=== PATIENT | female | born 1990 | race Caucasian/White ===

== ENCOUNTER 2016-11-16 22:09 | Emergency (ER) | payer OTHER ==
[~2016-11-16] VITALS: Ht 170.2 cm; Wt 55.0 kg
[~2016-11-16 22:09] MED LIST changes: -ACYC200C66 PO; -CLIN150 PO; -CLIN1CAP6 PO; -DOXY1CAP74 PO; -METH4TAB6 PO; -VALA500T PO
[2016-11-16 22:11] VITALS: BP 123/73; PULSE 95; RESP 15; TEMP 98.9; O2SAT 99
[2016-11-16] MEDS ORDERED: DOXY1CAP74 PO (22:25)
[2016-11-16] MEDS ORDERED: METH4TAB6 PO (22:25)
[2016-11-16] MEDS ORDERED: ACYC200C66 PO (22:25)
--- NOTE | 2016-11-16 22:37 | PD ---
HPI Chief Complaint: Cold / Flu Symptoms Time Seen by Provider: 22:18 Travel History International Travel<30 days: No Contact w/Intl Traveler<30days: No Traveled to known affect area: No History of Present Illness HPI This is a 26-year-old female who presents to the emergency department with 3 days of fever to 101.8, myalgias, fatigue, sore throat and rhinorrhea. She also has been having some painful vaginal lesions. She has been seeing an infectious disease doctor who diagnosed her with genital herpes. She also had a falsely positive syphillis test. Pt. was seen at her primary care physician today in the setting of her symptoms. She also had a pelvic exam done. She was discharged on steroids, valcyclovir and doxycycline. She has been home she's developed some swelling in the right side of her neck under her jaw, tender and painful. She's been having some pain when she swallows and tox. Her mom was concerned that she might have mumps. PFSH Past Medical History ADD: Yes Diminished Hearing: No Reproductive: Yes Influenza Vaccination: Yes ?: Not LMP: currently Past Surgical History Oral Surgery: Yes (WISDOM TEETH ) Tonsillectomy: Yes (AND ADENOIDS) Other Surgery: Yes (BIOPSIES OF BILAT BREAST ) Social History Alcohol Use: No Tobacco Use: No Substance Use: No Allergies-Medications (Allergen,Severity, Reaction): Coded Allergies: Penicillin (Verified Allergy, Unknown, 11/16/16) Reported Meds & Prescriptions Reported Meds & Active Scripts Active Valacyclovir (Valacyclovir HCl) 1 Gm Tab 1,000 Mg PO BID 10 Days Reported Doxycycline 40 Mg Cap 100 Mg PO BID Acyclovir 200 Mg Cap 200 Mg PO DAILY Methylprednisolone 4 Mg Tab 4 Mg PO DAILY Xanax (Alprazolam) 0.25 Mg Tab 0.25 Mg PO HS PRN Ritalin IR (Methylphenidate HCl) 10 Mg Tab 10 Mg PO DAILY Review of Systems Except as stated in HPI: all other systems reviewed are Neg Physical Exam Narrative GENERAL: Well-nourished, well-developed patient. SKIN: Warm and dry. HEAD: Normocephalic. EYES: No scleral icterus. No injection or drainage. ENT: Mild posterior pharyngeal erythema with no exudates. Tender anterior cervical lymphadenopathy on the right. NECK: Supple, trachea midline. CARDIOVASCULAR: Regular rate and rhythm without murmurs. RESPIRATORY: Breath sounds equal bilaterally. No accessory muscle use. GASTROINTESTINAL: Abdomen soft, non-tender, nondistended. MUSCULOSKELETAL: No cyanosis, or edema. Data Data Last Documented VS Vital Signs Date Time Temp Pulse Resp B/P Pulse Ox O2 Delivery O2 Flow Rate FiO2 11/16/16 22:11 98.9 95 15 123/73 99 Room Air Orders Group A Rapid Strep Screen (11/16/16 22:32) Strep Culture (Group A) (11/16/16 22:34) MDM Medical Decision Making Medical Screen Exam Complete: Yes Emergency Medical Condition: Yes Differential Diagnosis Viral syndrome, influenza, strep pharyngitis, viral pharyngitis, cat scratch disease Narrative Course This is a 26-year-old female who presents to the emergency department with malaise, fatigue, sore throat and rhinorrhea with some neck swelling that started today. She has tender anterior cervical lymphadenopathy on the right side. She is afebrile here in the emergency department. Her primary care physician started her on doxycycline earlier today. I'm not certain of the indication, however given on not clear what the reason as I don't want to discontinue it. Cat scratch disease is on the differential but I think doxycycline is a reasonable treatment. We obtained a strep test in the emergency department. She is nontoxic appearing. I think she can be discharged home and I think she can continue the treatments prescribed by her primary care physician. Diagnosis Primary Impression: Acute viral pharyngitis Patient Instructions: General Instructions Additional Instructions: If you develop severe chest pain, shortness of breath, sweating, lightheadedness , dizziness or difficulty breathing return to the emergency department immediately. Followup with your primary care physician in 2-3 days if your symptoms are not resolved. Med/Other Pt SpecificInfo: No Change to Meds Disposition: 01 DISCHARGE HOME Condition: Stable Irene Zavala MD Nov 16, 2016 22:37
== END 2016-11-16 23:33 | disposition home or self-care (01) ==
LOC: NEPC 22:09
DX: J02.8 Acute pharyngitis due to other specified organisms (principal)
CPT/HCPCS: 87081; 87880; 99283

== ENCOUNTER → 2016-11-16 | Outpatient (CLI) | payer OTHER ==
[~2016-11-16] MED LIST: ACYC200C66 PO; ALPR.25 PO; CLIN150 PO; CLIN1CAP6 PO; DOXY1CAP74 PO; METH4TAB6 PO; METHY10 PO; VALA1TAB PO; VALA500T PO
[2016-11-16 12:07] LABS: BACTERIA, URINE RARE /hpf; BLOOD, URINE MOD (NEG); GLUCOSE,URINE NEG (NEG); KETONE, URINE NEG (NEG); MUCUS URINE MANY /lpf (OCC); NITRITE,URINE NEG (NEG); PH, URINE 5.5 (5.0-8.5); SQUAMOUS EPITHELIAL CELL URINE 1 /hpf (0-5); TRANSITIONAL EPI CELLS, URINE 1 /hpf; URINE COLOR YELLOW (YELLW/STRAW)
[2016-11-19 10:51] LABS: HSV IGM 1 TITER ND TITER; HSV IGM II TITER ND TITER
[2016-11-19 15:47] LABS: RAPID PLASMA REAGIN SCREEN REACTIVE (NON-REACTVE)
[2016-11-19 17:52] LABS: HSV2 IGM IFA NEGATIVE (())
[2016-11-20 23:56] LABS: TREPONEMA PALLIDUM TOTAL ABS NON-REACTIVE (())
== END ==
LOC: CLAB 10:32
PROVIDERS: ATTEND Specialist
DX: N77.1 Vaginitis, vulvitis and vulvovaginitis in diseases classified elsewhere (principal); B96.89 Other specified bacterial agents as the cause of diseases classified elsewhere
CPT/HCPCS: 36415; 81001; 86592; 86593; 86695; 86696; 86780; 86787; 87086

== ENCOUNTER 2016-11-19 04:34 | Inpatient (IN) | payer OTHER ==
[~2016-11-19] VITALS: Ht 170.2 cm; Wt 56.9 kg
[2016-11-19] VITALS (8 sets, daily range): BP systolic 88–119; BP diastolic 55–73; PULSE 62–114; RESP 15–16; TEMP 96.1–100.3; O2SAT 97–98
[~2016-11-19 04:34] MED LIST changes: +ACYC200C66 PO; +DOXY1CAP74 PO; +METH4TAB6 PO
[2016-11-19] MEDS ORDERED: CLIN1CAP6 PO (04:54)
[2016-11-19] MEDS ORDERED: VALA500T PO (04:54)
--- NOTE | 2016-11-19 05:31 | PD ---
HPI Chief Complaint: ENT Complaint Time Seen by Provider: 05:01 Travel History International Travel<30 days: No Contact w/Intl Traveler<30days: No Traveled to known affect area: No History of Present Illness HPI 26-year-old female complains of sore throat, pain swelling under the jaw, coughing congestion and fever. Patient started having flulike symptoms with coughing congestion low-grade fever body ache 5 days ago. Patient was seen by personal physician 3 days ago and again 2 days ago and was given prescription for doxycycline. Patient started having pain swelling on the both sides under the jaw 2 days ago. Patient states that the pain and swelling on the right side got better however she has increasing pain and swelling of the left side under the jaw. Patient was seen by personal physician yesterday and was advised to stop taking doxycycline and given prescription for clindamycin 300 mg 3 times a day. Patient states that she still had persistent pain and swelling left-sided jaw despite taking the medication. Patient complains of dysphagia and persistent sore throat. Patient denies any chest pain or shortness of breath. Patient denies abdominal pain. Patient denies any nausea vomiting diarrhea. PFSH Past Medical History ADD: Yes Diminished Hearing: No Reproductive: Yes Immunizations Current: Yes ?: Not Past Surgical History Oral Surgery: Yes (WISDOM TEETH ) Tonsillectomy: Yes (AND ADENOIDS) Other Surgery: Yes (BIOPSIES OF BILAT BREAST ) Social History Alcohol Use: No Tobacco Use: No Substance Use: No Allergies-Medications (Allergen,Severity, Reaction): Coded Allergies: Penicillin (Verified Allergy, Unknown, 11/19/16) Reported Meds & Prescriptions Reported Meds & Active Scripts Active Reported Valacyclovir (Valacyclovir HCl) 500 Mg Tab 500 Mg PO BID Clindamycin (Clindamycin HCl) 300 Mg Cap 300 Mg PO BID Acyclovir 200 Mg Cap 200 Mg PO DAILY Methylprednisolone 4 Mg Tab 4 Mg PO DAILY Xanax (Alprazolam) 0.25 Mg Tab 0.25 Mg PO HS PRN Ritalin IR (Methylphenidate HCl) 10 Mg Tab 10 Mg PO DAILY Review of Systems General / Constitutional: No: Fever Eyes: No: Visual changes HENT: Positive: Sore Throat, No: Headaches Cardiovascular: No: Chest Pain or Discomfort Respiratory: No: Shortness of Breath Gastrointestinal: No: Abdominal Pain Genitourinary: No: Dysuria Musculoskeletal: No: Pain Skin: No Rash Neurologic: No: Weakness Psychiatric: No: Depression Endocrine: No: Polydipsia Hematologic/Lymphatic: No: Easy Bruising Physical Exam Narrative GENERAL: Well-nourished, well-developed patient. SKIN: Warm and dry. HEAD: Normocephalic. EYES: No scleral icterus. No injection or drainage. TM: Clear. Throat: Mild erythematous. No exudate no edema. NECK: Supple, trachea midline. No JVD or lymphadenopathy. Patient has soft tissue swelling tenderness left side submandibular area. No induration. CARDIOVASCULAR: Regular rate and rhythm without murmurs, gallops, or rubs. RESPIRATORY: Breath sounds equal bilaterally. No accessory muscle use. GASTROINTESTINAL: Abdomen soft, non-tender, nondistended. MUSCULOSKELETAL: No cyanosis, or edema. BACK: Nontender without obvious deformity. No CVA tenderness. Data Data Last Documented VS Vital Signs Date Time Temp Pulse Resp B/P Pulse Ox O2 Delivery O2 Flow Rate FiO2 11/19/16 04:35 100.3 114 16 110/73 98 Orders Complete Blood Count With Diff (11/19/16 05:19) Basic Metabolic Panel (Bmp) (11/19/16 05:19) Monoscreen (11/19/16 05:19) Iv Access Insert/Monitor (11/19/16 05:19) Ct Soft Tiss Neck W Iv Cont (11/19/16 05:19) Iohexol 300 Inj (Omnipaque 300 Inj) (11/19/16 05:47) Labs Laboratory Tests Test 11/19/16 05:36 White Blood Count 8.5 TH/MM3 Red Blood Count 4.55 MIL/MM3 Hemoglobin 14.2 GM/DL Hematocrit 41.1 % Mean Corpuscular Volume 90.3 FL Mean Corpuscular Hemoglobin 31.1 PG Mean Corpuscular Hemoglobin 34.4 % Concent Red Cell Distribution Width 13.1 % Platelet Count 298 TH/MM3 Mean Platelet Volume 8.3 FL Neutrophils (%) (Auto) 85.1 % Lymphocytes (%) (Auto) 9.2 % Monocytes (%) (Auto) 5.3 % Eosinophils (%) (Auto) 0.0 % Basophils (%) (Auto) 0.4 % Neutrophils # (Auto) 7.2 TH/MM3 Lymphocytes # (Auto) 0.8 TH/MM3 Monocytes # (Auto) 0.4 TH/MM3 Eosinophils # (Auto) 0.0 TH/MM3 Basophils # (Auto) 0.0 TH/MM3 CBC Comment DIFF FINAL Differential Comment Sodium Level 138 MEQ/L Potassium Level 4.5 MEQ/L Chloride Level 104 MEQ/L Carbon Dioxide Level 28.0 MEQ/L Anion Gap 6 MEQ/L Blood Urea Nitrogen 9 MG/DL Creatinine 0.74 MG/DL Estimat Glomerular Filtration 93 ML/MIN Rate Random Glucose 104 MG/DL Calcium Level 9.1 MG/DL Monoscreen NEG MDM Medical Decision Making Medical Screen Exam Complete: Yes Emergency Medical Condition: Yes Interpretation(s) 5:55 AM. CBC within normal limit. BMP within normal limit. Differential Diagnosis Differential diagnosis including parotitis, sialadenitis, abscess, lymphadenitis. Narrative Course 26-year-old female with pain swelling left submandibular area. Patient also has sore throat. Patient has persistent dry cough. Diagnosis Primary Impression: Parapharyngeal abscess Additional Impression: Sialadenitis Admitting Information Admitting Physician Requests: Admit Patient Instructions: General Instructions Additional Instructions: Take medications as directed. Follow-up with ENT. Return if worse. Med/Other Pt SpecificInfo: Prescription(s) given Disposition: DISCHARGE HOME Condition: Stable Flavio Khan MD Nov 19, 2016 05:30
[2016-11-19 05:42] LABS: AUTOMATED NEUTROPHIL # 7.2 TH/MM3 (1.8-7.7); BASOPHIL % 0.4 % (0.0-2.0); HEMATOCRIT 41.1 % (35.0-46.0); HEMO FLAGS DIFF FINAL; LYMPH % 9.2 % (9.0-44.0); LYMPHOCYTE # 0.8 TH/MM3 (1.0-4.8); MEAN CELL VOLUME 90.3 FL (80.0-100.0); MEAN CORPUSCULAR HEMOGLOBIN 31.1 PG (27.0-34.0); MEAN CORPUSCULAR HGB CONC 34.4 % (32.0-36.0); MONO % 5.3 % (0.0-8.0); NEUT % 85.1 % (16.0-70.0); PLATELET COUNT 298 TH/MM3 (150-450); RED BLOOD COUNT 4.55 MIL/MM3 (4.00-5.30); RED CELL DISTRIBUTION WIDTH 13.1 % (11.6-17.2); WHITE BLOOD COUNT 8.5 TH/MM3 (4.0-11.0)
[2016-11-19] MEDS ORDERED: IOHEXOL 300 MG/ML 50 ML BTL (for RAD DIAG) IV ONE (05:47)
[2016-11-19 05:54] LABS: POTASSIUM 4.5 MEQ/L (3.5-5.1)
--- NOTE | 2016-11-19 06:33 | RADRPT ---
EXAM DATE/TIME: 11/19/2016 05:39 [facility] COMPARISON: No previous studies available for comparison. INDICATIONS : Complains of swollen salivary glands. IV CONTRAST: 46 cc Omnipaque 300 (iohexol) IV RADIATION DOSE: 18.72 CTDIvol (mGy) MEDICAL HISTORY : None SURGICAL HISTORY : Tonsillectomy. ENCOUNTER: Initial ACUITY: 1 day PAIN SCALE: 4/10 LOCATION: facial TECHNIQUE: Volumetric scanning of the neck was performed. Using automated exposure control and adjustment of th e mA and/or kV according to patient size, radiation dose was kept as low as reasonably achievable to obtain optimal diagnostic quality images. FINDINGS: There is submucosal left parapharyngeal elongated fluid collection at the level of the lingual tonsil and extending inferior to the vallecula and piriform sinus region. In general, the fluid is proximal ly 7 x 11 mm in greatest transaxial dimension. There is swelling and edema in the left submandibular gland, measures approximately 22 x 39 mm relative to the left 17 x 26 mm. I don't see a duct stone or abscess of the submandibular gland. No lymphadenopathy demonstrated. There is mucoperiosteal thickening of the visualized maxillary air cells, left worse than right. Visualized lung apices are clear. CONCLUSION: 1. Elongated left parapharyngeal abscess at the level of the hypopharynx as above. 2. Swelling and edema of the left submandibular gland without abscess. 3. Chronic appearing left maxillary sinusitis. Freddy Cabrera MD on November 19, 2016 at 6:23 Board Certified Radiologist. This report was verified electronically.
[2016-11-19] MEDS ORDERED: CLINDAMYCIN INJ 600 MG in SODIUM CHLORIDE 0.9% INJ 100 ML IV ONE (07:00)
[2016-11-19] MEDS ORDERED: SODIUM CHLORIDE 0.9% FLUSH 5 ML FLUSH IVF PRN (07:00)
[2016-11-19] MEDS ORDERED: ACETAMINOPHEN 325 MG TAB PO PRN ×2 (08:00→10:00)
[2016-11-19] MEDS ORDERED: ONDANSETRON HCL 4 MG/2 ML VIAL IV PRN (08:00)
[2016-11-19] MEDS ORDERED: CLINDAMYCIN INJ 600 MG in SODIUM CHLORIDE 0.9% INJ 100 ML IV SCH (08:00)
--- NOTE | 2016-11-19 08:32 | HHI.HP ---
HPI Service [facility] Primary Care Physician Shelby Jaime Admission Diagnosis parapharyngeal abscess. Sialadenitis Diagnoses: Chief Complaint: neck swelling, body aches, fever Travel History International Travel<30 Days: No Contact w/Intl Traveler <30 Da: No Traveled to Known Affected Are: No History of Present Illness This is 26-year-old female who is generally in good health, presented to ED with complains of sore throat, pain swelling under the jaw, coughing, congestion and fever x 4 days. Patient started having flulike symptoms with coughing congestion low-grade fever body ache 5 days ago. Patient was seen by personal physician 3 days ago and again 2 days ago and was given prescription for doxycycline. Patient started having pain swelling on the both sides under the jaw 2 days ago. Patient states that the pain and swelling on the right side got better however she has increasing pain and swelling of the left side under the jaw. Patient was seen by personal physician yesterday and was advised to stop taking doxycycline and given prescription for clindamycin 300 mg 3 times a day. She was also given a Medrol dose pack. She was told that it was possible sialedinitis and told to eat Sour patch candy, which did improve swelling on left neck. Patient states that she still had persistent pain and swelling left-sided jaw despite taking the medication. Patient complained of dysphagia and persistent sore throat. Patient denied any chest pain or shortness of breath, no abdominal pain, no nausea vomiting or diarrhea. She is also having painful vaginal lesions that appeared a couple of weeks ago, she had work up done and was found positive for syphillis. She went to see Dr. Lopez who ran more tests and was negative for syphillis. She was negative for genital herpes as well. She has been on Acyclovir and is due to see her [employer]. States that the vaginal lesions did improve but are still present, not as painful, no drainage. In the ED, she was evaluated, laboratory work up done, essentially unremarkable. Strep was negative. She was febrile 100.[address] of neck was done showing pharyngeal abscess on left. Last Impressions Neck CT 11/19/16 0519 Signed Impressions: Service Date/Time: Saturday, November 19, 2016 05:39 - CONCLUSION: 1. Elongated left parapharyngeal abscess at the level of the hypopharynx as above. 2. Swelling and edema of the left submandibular gland without abscess. 3. Chronic appearing left maxillary sinusitis. Freddy Cabrera MD She has been continued on antibiotics. States she is swallowing better, still has body aches. Pt. admitted for further evaluation and treatment. Review of Systems Constitutional: COMPLAINS OF: Fever, Chills, DENIES: Diaphoretic episodes, Fatigue, Weight gain, Weight loss, Dizziness, Change in appetite, Night Sweats Endocrine: DENIES: Abnorml menstrual pattern, Heat/cold intolerance, Polydipsia , Polyuria, Polyphagia Eyes: DENIES: Blurred vision, Diplopia, Eye inflammation, Eye pain, Vision loss , Photosensitivity, Double Vision Ears, nose, mouth, throat: DENIES: Tinnitus, Hearing loss, Vertigo, Nasal discharge, Oral lesions, Throat pain, Hoarseness, Ear Pain, Running Nose, Epistaxis, Sinus Pain, Toothache, Odynophagia Respiratory: COMPLAINS OF: Cough, DENIES: Apneas, Snoring, Wheezing, Hemoptysis, Sputum production, Shortness of breath Cardiovascular: DENIES: Chest pain, Palpitations, Syncope, Dyspnea on Exertion , PND, Lower Extremity Edema, Orthopnea, Claudication Gastrointestinal: DENIES: Abdominal pain, Black stools, Bloody stools, Constipation, Diarrhea, Nausea, Vomiting, Difficulty Swallowing, Anorexia Genitourinary: DENIES: Abnormal vaginal bleeding, Dysmenorrhea, Dyspareunia, Sexual dysfunction, Urinary frequency, Urinary incontinence, Urgency, Hematuria , Dysuria, Nocturia, Vaginal discharge Musculoskeletal: DENIES: Joint pain, Muscle aches, Stiffness, Joint Swelling, Back pain, Neck pain Integumentary: DENIES: Abnormal pigmentation, Pruritus, Rash, Nail changes, Breast masses, Breast skin changes, Nipple discharge Hematologic/lymphatic: DENIES: Bruising, Lymphadenopathy Immunologic/allergic: DENIES: Eczema, Urticaria Neurologic: DENIES: Abnormal gait, Headache, Localized weakness, Paresthesias, Seizures, Speech Problems, Tremor, Poor Balance Psychiatric: DENIES: Anxiety, Confusion, Mood changes, Depression, Hallucinations, Agitation, Suicidal Ideation, Homicidal Ideation, Delusions Other vaginal lesions Past Family Social History Past Medical History Anxiety ADD Has menses Past Surgical History Harmony teeth surgery Biopsies of bilateral breast that was negative Tonsillectomy and adenoidectomy Reported Medications Reported Meds & Active Scripts Active Reported Valacyclovir (Valacyclovir HCl) 500 Mg Tab 500 Mg PO BID Clindamycin (Clindamycin HCl) 300 Mg Cap 300 Mg PO BID Acyclovir 200 Mg Cap 200 Mg PO DAILY Methylprednisolone 4 Mg Tab 4 Mg PO DAILY Xanax (Alprazolam) 0.25 Mg Tab 0.25 Mg PO HS PRN Ritalin IR (Methylphenidate HCl) 10 Mg Tab 10 Mg PO DAILY Allergies: Coded Allergies: Penicillin (Verified Allergy, Unknown, 11/19/16) Active Ordered Medications Inpatient Medications Acetaminophen (Tylenol) 650 mg Q4H PRN PO Temp>101F, Headache; Start 11/19/16 at 08:00 Clindamycin Phosphate/Sodium Chloride (Cleocin Inj/NS Inj) 104 ml @ 208 mls/hr Q8H IV ; Start 11/19/16 at 08:00 IV Flush (NS Flush) 2 ml BID IVF ; Start 11/19/16 at 09:00 IV Flush 2 ml 2 ml UNSCH PRN IVF FLUSH AFTER USING IV ACCESS; Start 11/19/16 at 07:00 Ondansetron HCl (Zofran Inj) 4 mg Q6H PRN IV NAUSEA OR VOMITING; Start at 08:00 Family History Mother is alive and well, history of chronic bronchitis secondary to smoking Father is alive, doesn't know much about his health history Has multiple siblings, doesn't know much about their health Social 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 No smoking, social alcohol use, no substance abuse. Physical Exam Vital Signs Vital Signs Date Time Temp Pulse Resp B/P Pulse Ox O2 Delivery O2 Flow Rate FiO2 11/19/16 04:35 100.3 114 16 110/73 98 Physical Exam GENERAL: This is a well-nourished, well-developed patient, in no apparent distress. SKIN: No rashes, ecchymoses or lesions. Cool and dry. HEAD: Atraumatic. Normocephalic. No temporal or scalp tenderness. EYES: Pupils equal round and reactive. Extraocular motions intact. No scleral icterus. No injection or drainage. ENT: Nose without bleeding, purulent drainage or septal hematoma. Throat without erythema, tonsillar hypertrophy or exudate. Uvula midline. Airway patent. NECK: Trachea midline. No JVD or lymphadenopathy. Neck supple. Patient has soft tissue swelling tenderness left side submandibular area. CARDIOVASCULAR: Regular rate and rhythm without murmurs, gallops, or rubs. RESPIRATORY: Clear to auscultation. Breath sounds equal bilaterally. No wheezes , rales, or rhonchi. GASTROINTESTINAL: Abdomen soft, non-tender, nondistended. No hepato-splenomegaly , or palpable masses. No guarding. MUSCULOSKELETAL: Extremities without clubbing, cyanosis, or edema. No joint tenderness, effusion, or edema noted. No calf tenderness. Negative Homans sign bilaterally. NEUROLOGICAL: Awake and alert. Cranial nerves II through XII intact. Motor and sensory grossly within normal limits. Five out of 5 muscle strength in all muscle groups. Normal speech. Laboratory Laboratory Tests Test 11/19/16 05:36 White Blood Count 8.5 Red Blood Count 4.55 Hemoglobin 14.2 Hematocrit 41.1 Mean Corpuscular Volume 90.3 Mean Corpuscular Hemoglobin 31.1 Mean Corpuscular Hemoglobin 34.4 Concent Red Cell Distribution Width 13.1 Platelet Count 298 Mean Platelet Volume 8.3 Neutrophils (%) (Auto) 85.1 Lymphocytes (%) (Auto) 9.2 Monocytes (%) (Auto) 5.3 Eosinophils (%) (Auto) 0.0 Basophils (%) (Auto) 0.4 Neutrophils # (Auto) 7.2 Lymphocytes # (Auto) 0.8 Monocytes # (Auto) 0.4 Eosinophils # (Auto) 0.0 Basophils # (Auto) 0.0 CBC Comment DIFF FINAL Differential Comment Sodium Level 138 Potassium Level 4.5 Chloride Level 104 Carbon Dioxide Level 28.0 Anion Gap 6 Blood Urea Nitrogen 9 Creatinine 0.74 Estimat Glomerular Filtration 93 Rate Random Glucose 104 Calcium Level 9.1 Monoscreen NEG Result Diagram: 11/19/1636 11/19/1636 Imaging Last Impressions Neck CT 11/19/16518 Signed Impressions: Service Date/Time: Saturday, November 19, 2016 05:39 - CONCLUSION: 1. Elongated left parapharyngeal abscess at the level of the hypopharynx as above. 2. Swelling and edema of the left submandibular gland without abscess. 3. Chronic appearing left maxillary sinusitis. Freddy Cabrera MD Assessment and Plan Problem List: (1) Parapharyngeal abscess (2) Genital lesion, female Assessment and Plan Admit to Dr. Hong 26-year-old female presented with neck swelling, generalized malaise, body aches , fever, difficulty swallowing. CT of the neck completed with findings of elevated left parapharyngeal abscess at the level of the hypopharynx, swelling and edema of the left submandibular gland without abscess. -Continue with empiric antibiotics -Follow cultures -ENT consultation -Continue with steroids Genital lesions, recent workup, negative for herpes, negative for syphilis -Continue with acyclovir for now Follow-up with gynecology as outpatient Home medications reviewed, initiated as indicated SCDs for DVT prophylaxis PPI for GI prophylaxis Plan of care has been discussed with the patient, attending and registered nurse. Further management of the patient be dependent on the hospital This patient was seen by myself and Dr. Hong, this H&P is written his behalf Taisha Cloud Nov 19, 2016 08:32
[2016-11-19] MEDS ORDERED: SODIUM CHLORIDE 0.9% FLUSH 5 ML FLUSH IVF SCH (09:00)
[2016-11-19] MEDS ORDERED: ALPRAZolam 0.25 MG TAB PO PRN ×2 (09:45→10:00)
[2016-11-19] MEDS ORDERED: ONDANSETRON HCL 4 MG/2 ML VIAL IVP PRN (10:00)
[2016-11-19] MEDS ORDERED: NALOXONE HCL 0.4 MG/ML AMP IV PRN (10:00)
[2016-11-19] MEDS ORDERED: SODIUM CHLORIDE 0.9% FLUSH 5 ML FLUSH FLUSH PRN (10:00)
[2016-11-19] MEDS: HEPARIN SODIUM - SQ 10,000 UNITS/ML VIAL SQ SCH ×2 (11:59→20:47)
[2016-11-19] MEDS: SODIUM CHLOR 0.9% 1000 ML INJ 1,000 ML IV SCH ×2 (11:59→21:57)
[2016-11-19] MEDS: valACYclovir HCL 500 MG TAB PO SCH ×2 (11:59→20:45)
[2016-11-19] MEDS: DEXAMETHASONE SOD PHOS 20 MG/5 ML VIAL IV SCH ×2 (14:30→21:47)
[2016-11-19] MEDS: ACETAMINOPHEN/CODEINE 300 MG/30 MG TAB PO PRN ×2 (14:33→21:55)
[2016-11-19] MEDS: CLINDAMYCIN INJ 600 MG in SODIUM CHLORIDE 0.9% INJ 100 ML IV SCH (16:25)
[2016-11-19] MEDS ORDERED: CLINDAMYCIN INJ 900 MG in SODIUM CHLORIDE 0.9% INJ 100 ML IV SCH (17:00)
[2016-11-19] MEDS: SODIUM CHLORIDE 0.9% FLUSH 5 ML FLUSH FLUSH SCH (20:45)
[2016-11-19] MEDS ORDERED: CLINDAMYCIN 150 MG CAP PO SCH (21:00)
[2016-11-19] MEDS ORDERED: valACYclovir HCL 500 MG TAB PO SCH (21:00)
[2016-11-20] VITALS (7 sets, daily range): BP systolic 92–108; BP diastolic 50–71; PULSE 51–76; RESP 14–18; TEMP 96.1–97.9; O2SAT 96–99
[2016-11-20] MEDS: CLINDAMYCIN INJ 600 MG in SODIUM CHLORIDE 0.9% INJ 100 ML IV SCH ×2 (00:10→08:28)
[2016-11-20] MEDS: ACETAMINOPHEN/CODEINE 300 MG/30 MG TAB PO PRN ×2 (03:32→14:36)
[2016-11-20] MEDS: DEXAMETHASONE SOD PHOS 20 MG/5 ML VIAL IV SCH ×3 (05:17→20:51)
[2016-11-20 06:27] LABS: AUTOMATED NEUTROPHIL # 5.1 TH/MM3 (1.8-7.7); BASOPHIL % 0.2 % (0.0-2.0); HEMATOCRIT 38.2 % (35.0-46.0); HEMO FLAGS DIFF FINAL; LYMPH % 16.4 % (9.0-44.0); MEAN CELL VOLUME 90.7 FL (80.0-100.0); MEAN CORPUSCULAR HEMOGLOBIN 30.6 PG (27.0-34.0); MEAN CORPUSCULAR HGB CONC 33.8 % (32.0-36.0); MONO % 3.3 % (0.0-8.0); NEUT % 80.1 % (16.0-70.0); PLATELET COUNT 308 TH/MM3 (150-450); RED BLOOD COUNT 4.21 MIL/MM3 (4.00-5.30); WHITE BLOOD COUNT 6.3 TH/MM3 (4.0-11.0)
[2016-11-20 06:46] LABS: BICARBONATE 26.1 MEQ/L (21.0-32.0); POTASSIUM 3.9 MEQ/L (3.5-5.1)
[2016-11-20] MEDS: HEPARIN SODIUM - SQ 10,000 UNITS/ML VIAL SQ SCH (07:23)
[2016-11-20] MEDS: SODIUM CHLOR 0.9% 1000 ML INJ 1,000 ML IV SCH (08:23)
[2016-11-20] MEDS: ACYCLOVIR 200 MG CAP PO SCH (08:29)
[2016-11-20] MEDS: SODIUM CHLORIDE 0.9% FLUSH 5 ML FLUSH FLUSH SCH (08:29)
[2016-11-20] MEDS ORDERED: methylPREDNISolone 4 MG TAB PO SCH (09:00)
[2016-11-20] MEDS ORDERED: METHYLPHENIDATE HCL 10 MG TAB PO SCH (09:00)
--- NOTE | 2016-11-20 12:56 | MB ---
cc: ESPERANZA HENSLEY MD DATE OF CONSULTATION 11/20/[address] Salcedo REASON FOR CONSULTATION Abscess HISTORY OF PRESENT ILLNESS This is 26-year-old white female who presented to the emergency department because of fever, body aches and swelling of the neck. The patient was initially evaluated in the emergency department on November 16 and at that time she presented with flu-like symptoms, as well as fever with a temperature of 101.8 degrees, myalgias, sore throat and fatigue. She also reports having painful vaginal lesions as well. The patient at preliminary workup for the vaginal lesions and syphilis test was positive, but this was felt to be falsely positive. She also had herpes testing which showed negative for herpes 1 and 2. VZV titer was elevated. The patient was treated with steroids, valacyclovir, and doxycycline. She stated that approximately a few days after that she started developing mild tenderness at the right submandibular area and subsequently she developed swelling underneath both sides of the jaw and she had some soreness of the throat and it became difficult to swallow. She describes some pain on swallowing. This saw her primary physician and she was told to suck on some kiddies sour candy. She has had some relief, but the swelling remained on the left side and it became more tender and painful. She describes the pain being 8/10 scale and she had low grade fever as well and therefore she presented again to the emergency department for evaluation. She underwent workup including CT scan of the neck which revealed an elongated left parapharyngeal abscess at the level of the hypopharynx and also edema and swelling of the left submandibular gland and chronic-appearing left maxillary sinusitis. Her temperature was 100.3 when she presented. Her white blood cell count was normal. She had no drooling problem and no problems controlling her saliva. She was able to eat, but it was difficult because of pain. [place] screen test was negative. Throat culture revealed no group A beta strep. Currently the patient feels better. She has less pain and she describes mostly discomfort in the left submandibular region. The patient describes two episodes with vaginal lesion which would occur right before her period. She notes that this would go away after the period was over. She notes that she has not noticed any at this current time. The patient states that her eyes have been somewhat dry, but she has had no severe dryness to the point she could not function. She also notes that she gets some pain in her wrist when she exercises, but has no problems with significant arthritic pains. The patient has had her tonsils and adenoids removed at age 6. Prior HIV testing has been negative. PAST MEDICAL HISTORY 1. Anxiety disorder 2. ADD 3. Tonsillectomy and adenoidectomy 4. Breast biopsy 5. [place] teeth surgery ALLERGIES PENICILLIN MEDICATIONS 1. Clindamycin 2. Acyclovir 3. Ritalin 4. Decadron 5. Tylenol with Codeine #3 p.r.n. SOCIAL HISTORY No tobacco, alcohol or illicit drugs. The patient has been sexually active in the past. REVIEW OF SYSTEMS Pertinent as mentioned above. No back pain, dysuria or headaches. The patient describes foul-taste in her mouth. No problems with control of her saliva. PHYSICAL EXAMINATION This is a well-developed slender female in no acute distress. She is awake and alert and oriented. VITAL SIGNS: Include temperature 97.1, BP 101/56, respirations 16, heart rate 76. HEENT: Head is atraumatic. Extraocular movements grossly intact, pupils reactive to light. No icterus. Oropharynx, no visible lesions. Oropharynx is clear. Moist mucosa. Uvula is midline. Nose no drainage. NECK: Supple. Swelling at the right submandibular gland which is nontender. This is about the size of an almond nut. On the left submandibular region, there is more swelling at the submandibular which is tender on palpation. This measures around the size of a large grape. It is mobile. There is no visible erythema. The neck is supple. LUNGS: Clear to auscultation. HEART: Regular rate and rhythm without murmurs or rubs or gallops. ABDOMEN: Bowel sounds present, soft, nontender. RECTAL: Not performed. EXTREMITIES: No clubbing, cyanosis or edema. No tenderness on palpation at the joints. No calf tenderness. SKIN: No rash. NEUROLOGIC: Nonfocal. PSYCHIATRIC: The patient calm and cooperative and pleasant. LABORATORY DATA WBC 6.3, platelet count 308, hemoglobin 12.9, 80% neutrophils. Creatinine 0.55, BUN 7, sodium 140. IMPRESSION 1. Parapharyngeal abscess and sialoadenitis. 2. Genital lesions which have been worked up and was negative for herpes and syphilis and is of unclear etiology. This is likely unrelated to her problems with the parapharyngeal abscess. I think the Parapharnygeal abscess is unrelated to the vaginal lesions. RECOMMENDATIONS 1. Continue to treat the patient with clindamycin. She appears clinically improved and she can be continued on the clindamycin p.o. because she has a penicillin allergy. I would give 300 mg p.o. four times a day for another seven to ten days. 2. She should follow up with Dr. Lopez as an outpatient. 3. She should also see a cath lab radiology technician when she has the lesions of the vagina so that testing of tissue scraping can be done to try to get a diagnosis. She tells me that she has an appointment with a CHECK WRITING MACHINE OPERATOR physician scheduled. 4. She is supposed to try solid foods today and I recommended that if she tolerates the solid food, switching the antibiotics to p.o. can be done. Thank you for this consultation. This patient's progress will be monitored if she remains in the hospital. Esperanza Hensley MD FD/SEMAJ /11:56 AM /12:36 PM MARCIN
[2016-11-20] MEDS: CLINDAMYCIN 150 MG CAP PO SCH ×2 (15:11→20:51)
--- NOTE | 2016-11-20 16:05 | MB ---
cc: NEHEMIAS SALCEDO MD DATE OF CONSULTATION 11/20/2016 REASON FOR CONSULTATION Parapharyngeal abscess. HISTORY OF THE PRESENT ILLNESS The patient, who is also a nurse in the emergency room here at [place], presented with fevers, body aches and neck swelling. The patient was initially seen on the in the ER and they noted with her flu-like symptoms that she had a fever of 101.8, as well as sore throat and fatigue, as well as other concerns. She was treated with steroids and doxycycline, as valacyclovir for viral infection that was noted to be in her vaginal area. She noted that some days later she had tenderness in her submandibular gland and developed swelling on both sides of her jaw and she noted dysphagia. She has been admitted since yesterday and was started yesterday afternoon on Decadron. She also has been on IV clindamycin since yesterday. She notes the pain has improved and she has had rapid decrease in the size of her submandibular glands. A CT scan done revealed a very small left parapharyngeal abscess approximately 1 cm in size. Of note the patient currently feels much better and pain is much improved. She notes that the swelling is dramatically decreased in size. On examination the patient has a mild submandibular enlargement, left greater than right. There is no active tenderness to palpation. On flexible fiberoptic laryngoscopy the patient's airway is widely patent and vocal cords are mobile bilaterally. Other examination is as previously noted. Of note the patient is begin switched over from IV Clindamycin to oral Clindamycin. First dose to be given shortly. I see that the patient is going to have 300 milligrams four times daily for 7-10 days. It is my recommendation that the patient gets at least 14 days of the oral Clindamycin instead of the 7-10 days just to know minimize the chance of this returning as there was an actual abscess that was noted on the CT scan. I also recommend that the patient go home on a Medrol Dosepak and continue with increased hydration and submandibular gland massage for her sialoadenitis. Thus regarding this patient's parapharyngeal abscess and her sialoadenitis impression, recommend the patient stay until tomorrow morning at least to get her 6 a.m. dose of steroids prior to going home. I relayed this message to the nurse covering the patient currently and she did put a notice for me regarding that. The patient may be seen by ear, nose, and throat within the next two to four weeks or earlier if needed. I stressed to the patient to take probiotics while taking antibiotics to minimize the chance of any kind of GI or symptoms from taking the high dose of Clindamycin. The patient understands and agrees with the above. I spoke with the patient's mother at length regarding this as well, who is also in the room with us. Nehemias Salcedo MD CCP/KK /3:03 PM /3:39 PM
[2016-11-20] MEDS ORDERED: CLIN150 PO (16:51)
--- NOTE | 2016-11-20 22:33 | HHI.PR ---
Subjective Interval History Alert, oriented, feels better, less throat pain, less swelling in the left submandibular gland, no fever, no trouble swallowing, no trouble breathing Vitals/Results Intake & Output 11/19/16 11/19/16 11/20/16 14:59 22:59 06:59 Intake Total 495 ml 1136 ml Balance 495 ml 1136 ml IV Total 495 ml 1136 ml Vital Signs Vital Signs Date Time Temp Pulse Resp B/P Pulse Ox O2 Delivery O2 Flow Rate FiO2 11/20/16 20:00 96.7 60 16 98/53 98 11/20/16 16:00 97.7 56 18 92/53 97 11/20/16 12:00 97.8 56 18 108/71 96 11/20/16 08:40 98 21 11/20/16 08:00 97.1 76 16 101/56 98 11/20/16 04:00 97.9 63 16 101/61 99 11/20/16 00:00 96.1 51 14 92/50 96 CBC/BMP: 11/20/16 0555 11/20/16 0555 Lab Results Laboratory Tests Test 11/20/16 05:55 White Blood Count 6.3 TH/MM3 Red Blood Count 4.21 MIL/MM3 Hemoglobin 12.9 GM/DL Hematocrit 38.2 % Mean Corpuscular Volume 90.7 FL Mean Corpuscular Hemoglobin 30.6 PG Mean Corpuscular Hemoglobin 33.8 % Concent Red Cell Distribution Width 13.0 % Platelet Count 308 TH/MM3 Mean Platelet Volume 8.4 FL Neutrophils (%) (Auto) 80.1 % Lymphocytes (%) (Auto) 16.4 % Monocytes (%) (Auto) 3.3 % Eosinophils (%) (Auto) 0.0 % Basophils (%) (Auto) 0.2 % Neutrophils # (Auto) 5.1 TH/MM3 Lymphocytes # (Auto) 1.0 TH/MM3 Monocytes # (Auto) 0.2 TH/MM3 Eosinophils # (Auto) 0.0 TH/MM3 Basophils # (Auto) 0.0 TH/MM3 CBC Comment DIFF FINAL Differential Comment Sodium Level 140 MEQ/L Potassium Level 3.9 MEQ/L Chloride Level 106 MEQ/L Carbon Dioxide Level 26.1 MEQ/L Anion Gap 8 MEQ/L Blood Urea Nitrogen 7 MG/DL Creatinine 0.55 MG/DL Estimat Glomerular Filtration 132 ML/MIN Rate Random Glucose 110 MG/DL Calcium Level 8.6 MG/DL Physical Exam General General Appearance: No Acute Distress, Comfortable Eyes Eye Exam: Pupils Reactive Ears & Nose Ears & Nose Exam: Nasal Mucosa Pinon Throat Throat Exam: Oral Mucosa Pinon & Moist Neck Neck Exam: Trachea Midline Pulmonary Resp Exam: Breath Sounds Equal, No Distress Cardiology CV Exam: Normal Sinus Rhythm, Good Perfusion Gastrointestinal/Abdomen GI Exam: Bowel Sounds Present Musculoskeletal MS Exam: Normal Gait, Normal Tone Neurologic Neuro Exam: Awake, Oriented, Speech Clear, Moving All Extremities Psychiatric Psych Exam: Appropriate Responses Assessment/Plan Assessment/Plan Assessment Left-sided parapharyngeal small abscess, clinically stable No need for surgery per ENT Bilateral submandibular adenitis Left greater than right Vesicular vulvar eruption on acyclovir, however lateral studies were negative Management Seen by ENT Seen by infectious disease No longer needs steroids As she has no trouble breathing or swallowing Discharge home on clindamycin Continue antiviral Follow up with her outpatient infectious disease specialist Dr. Lopez Discussed with patient Discussed with nurse Discharge Minutes: 45 Hany Hong MD Nov 20, 2016 22:33
[2016-11-21] VITALS: BP 91/53; PULSE 74; RESP 16; TEMP 96.7; O2SAT 98
[2016-11-21] MEDS: CLINDAMYCIN 150 MG CAP PO SCH ×2 (02:12→07:19)
[2016-11-21] MEDS: ACETAMINOPHEN/CODEINE 300 MG/30 MG TAB PO PRN (02:13)
[2016-11-21 04:30] VITALS: BP 92/54; PULSE 16; RESP 53; TEMP 97.5; O2SAT 97
[2016-11-21] MEDS: DEXAMETHASONE SOD PHOS 20 MG/5 ML VIAL IV SCH (06:00)
[2016-11-21] MEDS: ACYCLOVIR 200 MG CAP PO SCH (07:19)
[2016-11-21 07:47] VITALS: O2SAT 100
[2016-11-21 08:00] VITALS: BP 102/71; PULSE 56; RESP 18; TEMP 96.9; O2SAT 97
== END 2016-11-21 08:33 | disposition home or self-care (01) | DRG 153 ==
LOC: NEPC 04:34 → NEDA 07:00 → HOCB 11:02
PROVIDERS: ADMIT Specialist; ATTEND Specialist
DX: J39.0 Retropharyngeal and parapharyngeal abscess (principal); F41.9 Anxiety disorder, unspecified; K11.20 Sialoadenitis, unspecified; N89.8 Other specified noninflammatory disorders of vagina; F98.8 Other specified behavioral and emotional disorders with onset usually occurring in childhood and adolescence; Z88.0 Allergy status to penicillin
CPT/HCPCS: 70491; 80048; 85025; 86308; J1100; J1644; J7030; Q9967

== ENCOUNTER → 2017-01-14 | Outpatient (CLI) | payer OTHER ==
[~2017-01-14] MED LIST changes: +CLIN150 PO; -DOXY1CAP74 PO; -METH4TAB6 PO; -VALA1TAB PO
[2017-01-14 09:30] LABS: AUTOMATED NEUTROPHIL # 6.2 TH/MM3 (1.8-7.7); BASOPHIL # 0.1 TH/MM3 (0-0.2); BASOPHIL % 0.5 % (0.0-2.0); EOSINOPHIL # 0.1 TH/MM3 (0-0.4); EOSINOPHIL % 1.2 % (0.0-4.0); HEMATOCRIT 36.3 % (35.0-46.0); HEMO FLAGS DIFF FINAL; LYMPH % 33.3 % (9.0-44.0); LYMPHOCYTE # 3.7 TH/MM3 (1.0-4.8); MEAN CELL VOLUME 91.3 FL (80.0-100.0); MEAN CORPUSCULAR HEMOGLOBIN 29.7 PG (27.0-34.0); MEAN CORPUSCULAR HGB CONC 32.5 % (32.0-36.0); MONO % 9.1 % (0.0-8.0); NEUT % 55.9 % (16.0-70.0); PLATELET COUNT 261 TH/MM3 (150-450); RED BLOOD COUNT 3.98 MIL/MM3 (4.00-5.30); RED CELL DISTRIBUTION WIDTH 13.6 % (11.6-17.2); WHITE BLOOD COUNT 11.1 TH/MM3 (4.0-11.0)
[2017-01-14 09:51] LABS: WESTERGREN SEDIMENTATION RATE 6 mm/hr (0-20)
[2017-01-14 09:53] LABS: ALKALINE PHOSPHATASE 91 U/L (45-117); ALT (GPT) 34 U/L (10-53); ANION GAP 7 MEQ/L (5-15); AST (GOT) 18 U/L (15-37); BICARBONATE 27.6 MEQ/L (21.0-32.0); BLOOD UREA NITROGEN 21 MG/DL (7-18); CHLORIDE 107 MEQ/L (98-107); GLOMERULAR FILTRATION RATE 98 ML/MIN (>89); GLUCOSE,FASTING 78 MG/DL (74-99); POTASSIUM 3.7 MEQ/L (3.5-5.1); SODIUM (NA) 142 MEQ/L (136-145); TOTAL BILIRUBIN ADULT 0.3 MG/DL (0.2-1.0)
[2017-01-14 10:00] LABS: RHEUMATOID FACTOR TRIGGER LESS THAN 10.0 IU/ML (0.0-14.9)
[2017-01-16 23:54] LABS: HSV2 IGM IFA NEGATIVE (())
[2017-01-17 09:39] LABS: HSV IGM 1 TITER ND TITER; HSV IGM II TITER ND TITER
== END ==
LOC: CLAB 08:36
PROVIDERS: ATTEND Family Medicine
DX: Z20.2 Contact with and (suspected) exposure to infections with a predominantly sexual mode of transmission (principal); R76.0 Raised antibody titer; M35.00 Sjogren syndrome, unspecified; K11.20 Sialoadenitis, unspecified; R53.83 Other fatigue; M25.50 Pain in unspecified joint; Z79.899 Other long term (current) drug therapy
CPT/HCPCS: 36415; 80053; 85025; 85652; 86038; 86140; 86200; 86235; 86430; 86695; 86696; 86703; 86735

== ENCOUNTER → 2017-06-07 | Outpatient (CLI) | payer OTHER ==
[2017-06-09 17:52] LABS: HSV2 IGM IFA NEGATIVE
[2017-06-10 10:22] LABS: HSV IGM 1 TITER ND TITER; HSV IGM II TITER ND TITER
== END ==
LOC: CLAB 07:13
PROVIDERS: ATTEND Family Medicine
DX: Z00.00 Encounter for general adult medical examination without abnormal findings (principal); Z79.899 Other long term (current) drug therapy; Z20.2 Contact with and (suspected) exposure to infections with a predominantly sexual mode of transmission; R53.83 Other fatigue; R53.81 Other malaise
CPT/HCPCS: 36415; 86695; 86696; 86703